=== PATIENT | female | born 1950 | race Caucasian/White ===

== ENCOUNTER 2019-06-27 08:53 | Outpatient (CLI) | payer MEDICARE ==
[2019-06-27 09:13] LABS: MEAN CORPUSCULAR HEMOGLOBIN 29.6 pg (27.0-34.8); MEAN CORPUSCULAR HGB CONC 33.1 g/dL (32.4-35.8); MEAN CORPUSCULAR VOLUME 89.7 fL (80-100); MEAN PLATELET VOLUME 8.7 fL (7.4-10.4); PLATELET COUNT 237 x10^3/uL (130-400); RED BLOOD COUNT 4.87 x10^6/uL (3.82-5.3); RED CELL DISTRIBUTION WIDTH 13.4 % (9.6-15.2)
[2019-06-27 09:23] LABS: ANION GAP 4 mmol/L (5-15); CALCIUM 9.2 mg/dL (8.5-10.1); CHLORIDE 107 mmol/L (98-107)
[2019-06-27 09:43] LABS: MD YES
[2019-06-27 09:46] LABS: BAND#(MANUAL) 0.19 x10^3/uL; BANDS%(MANUAL) 1 % (0-7); LYMPH#(MANUAL) 15.81 x10^3/uL (1-3.4); LYMPHS% (MANUAL) 85 % (22-44); SEGS% (MANUAL) 14 % (42-75)
[2019-06-27 09:47] LABS: <PLATELET ESTIMATE> ADEQUATE; <PLT MORPHOLOGY> NORMAL PLT MORPH; <RBC MORPHOLOGY> NORMAL
== END 2019-06-27 23:59 | disposition home or self-care (01) ==
LOC: LAB 08:53 → RAD 23:59
PROVIDERS: ATTEND Internal Medicine Cardiovascular Disease
DX: J43.9 Emphysema, unspecified (principal); Z98.890 Other specified postprocedural states
CPT/HCPCS: 36415; 71046; 80048; 85025

== ENCOUNTER 2019-06-30 08:24 | Inpatient (IN) | payer MEDICARE ==
[~2019-06-30] VITALS: Ht 165.1 cm; Wt 59.4 kg
[2019-06-30] MEDS ORDERED: CEFAZOLIN PMX 1GM/50ML 50 ML IVPB ONE (09:00)
[2019-06-30 09:17] VITALS: BP 151/68
[2019-06-30] MEDS ORDERED: CEFAZOLIN 1,000 MG ONE (09:38)
[2019-06-30] MEDS ORDERED: MIDAZOLAM 1 MG/ML, 5ML ONE (09:38)
[2019-06-30] MEDS ORDERED: LIDOCAINE 2%, 20ML ONE (09:38)
[2019-06-30] MEDS ORDERED: FENTANYL PF 100 MCG/2ML ONE (09:38)
[2019-06-30] MEDS ORDERED: CEFAZOLIN PMX 1GM/50ML 50 ML ONE (09:38)
[2019-06-30] MEDS ORDERED: HYDR-3237 PO (09:47)
[2019-06-30] MEDS ORDERED: LACT1CAP64 PO (09:47)
[2019-06-30] MEDS ORDERED: CHOL10003 PO (09:47)
[2019-06-30] MEDS ORDERED: SERT50TA28 PO (09:47)
[2019-06-30] MEDS ORDERED: IMMU10VI10 SQ (09:47)
[2019-06-30] MEDS ORDERED: ASPI1TAB54 PO (09:47)
[2019-06-30] MEDS ORDERED: BIOT5CAP3 PO (09:47)
[2019-06-30] MEDS ORDERED: VITA1TAB29 PO (09:47)
[2019-06-30] MEDS ORDERED: MUPI1OIN6 TP (09:47)
[2019-06-30] MEDS ORDERED: CALC600T23 PO (09:47)
[2019-06-30] MEDS ORDERED: CYCL-259 PO (09:47)
[2019-06-30] MEDS ORDERED: ZOLP5TAB6 PO (09:47)
[2019-06-30] MEDS ORDERED: CETI10TA18 PO (09:47)
[2019-06-30] MEDS ORDERED: AMOX-291 PO (09:47)
[2019-06-30] MEDS ORDERED: POTA20TA14 PO (09:47)
[2019-06-30] MEDS ORDERED: ACYC-114 PO (09:47)
[2019-06-30] MEDS ORDERED: AZEL205.2 NAS (09:47)
[2019-06-30] MEDS ORDERED: MV-M1TAB16 PO (09:47)
[2019-06-30] MEDS ORDERED: ALBU8.5H8 INH (09:47)
[2019-06-30] MEDS ORDERED: MONT10TA9 PO (09:47)
[2019-06-30] MEDS ORDERED: ESTR0.5T PO (09:47)
[2019-06-30] MEDS ORDERED: ACYC5CRE8 TP (09:47)
[2019-06-30] MEDS ORDERED: LEVO50TA5 PO (09:47)
[2019-06-30] MEDS ORDERED: SULF1TAB24 PO (09:47)
[2019-06-30] MEDS ORDERED: MULT-717 PO (09:47)
[2019-06-30] MEDS ORDERED: TRIA10.8 NAS (09:47)
[2019-06-30] MEDS ORDERED: ATOR10TA9 PO (09:47)
[2019-06-30] MEDS ORDERED: GLUC-100 PO (09:47)
[2019-06-30] MEDS ORDERED: ALEN70TA6 PO (09:47)
[2019-06-30] MEDS ORDERED: ASPI-515 PO (09:47)
[2019-06-30] MEDS ORDERED: LYSI500T25 PO (09:48)
[2019-06-30] MEDS ORDERED: ONDANSETRON 2MG/ML, 2ML IV PRN (12:00)
[2019-06-30] MEDS ORDERED: HYDROcodone/APAP 5/325 TABLET PO PRN (12:00)
[2019-06-30] MEDS ORDERED: SULFAMETH./TRIMETHOPRIM DS 800MG/160MG TABLET PO PRN (12:00)
[2019-06-30] MEDS ORDERED: ACYCLOVIR 400 MG TABLET PO PRN (12:00)
[2019-06-30] MEDS ORDERED: ALENDRONATE 70 MG TABLET PO SCH (12:00)
[2019-06-30] MEDS ORDERED: HOLD MEDICATION MC PRN (12:00)
[2019-06-30] MEDS ORDERED: ZOLPIDEM 5MG TABLET PO PRN ×2 (12:00)
[2019-06-30] MEDS: SODIUM CHLORIDE 0.9% 1,000 ML IV SCH ×2 (12:05→17:02)
[2019-06-30] MEDS: AMOXICILLIN 500 MG CAPSULE PO SCH ×2 (12:09→21:00)
[2019-06-30 13:47] VITALS: BP 117/71
[2019-06-30] MEDS: HYDROcodone/APAP 5/325 TABLET PO PRN ×2 (14:17→19:17)
[2019-06-30 17:18] VITALS: BP 167/78
[2019-06-30 19:12] VITALS: BP 109/59
[2019-06-30] MEDS: ATORVASTATIN 10 MG TABLET PO SCH (20:43)
[2019-06-30] MEDS: MONTELUKAST 10 MG TABLET PO SCH (20:43)
[2019-06-30] MEDS: CETIRIZINE 10 MG TABLET PO SCH (20:44)
[2019-06-30] MEDS: CEFAZOLIN PMX 1GM/50ML 50 ML IVPB SCH (20:44)
[2019-06-30] MEDS: SODIUM CHLORIDE FLUSH 10ML SYR IVF SCH (21:00)
[2019-07-01] MEDS: SODIUM CHLORIDE 0.9% 1,000 ML IV SCH ×5 (00:54→19:28)
[2019-07-01 00:57] VITALS: BP 109/68
[2019-07-01] MEDS: HYDROcodone/APAP 5/325 TABLET PO PRN (03:50)
[2019-07-01] MEDS: CEFAZOLIN PMX 1GM/50ML 50 ML IVPB SCH (05:00)
[2019-07-01] MEDS ORDERED: SERTRALINE 100MG TABLET ONE (08:32)
[2019-07-01] MEDS: ASPIRIN 81 MG TABLET EC PO SCH (08:35)
[2019-07-01] MEDS: POTASSIUM CHLORIDE 20 MEQ TAB.ER.PRT PO SCH (08:36)
[2019-07-01] MEDS: AMOXICILLIN 500 MG CAPSULE PO SCH ×3 (08:37→21:00)
[2019-07-01] MEDS: SERTRALINE 50MG TABLET PO SCH (08:37)
[2019-07-01] MEDS: CHOLECALCIFEROL 1,000 UNIT TABLET PO SCH (08:37)
[2019-07-01] MEDS: CYCLOBENZAPRINE 10 MG TABLET PO SCH (08:38)
[2019-07-01] MEDS: SODIUM CHLORIDE FLUSH 10ML SYR IVF SCH ×3 (08:39→21:00)
[2019-07-01 08:50] VITALS: BP 146/72
[2019-07-01] MEDS ORDERED: LEVOTHYROXINE 50 MCG TABLET PO SCH (09:00)
[2019-07-01] MEDS: ESTRADIOL 0.5 MG TABLET PO SCH (09:01)
[2019-07-01] MEDS ORDERED: CEFAZOLIN PMX 1GM/50ML 50 ML IVPB ONE (12:00)
[2019-07-01] MEDS ORDERED: LIDOCAINE 2%, 20ML ONE (14:17)
[2019-07-01] MEDS ORDERED: CEFAZOLIN PMX 1GM/50ML 50 ML ONE (14:17)
[2019-07-01] MEDS ORDERED: MIDAZOLAM 1 MG/ML, 5ML ONE (14:17)
[2019-07-01] MEDS ORDERED: FENTANYL PF 100 MCG/2ML ONE (14:17)
[2019-07-01] MEDS ORDERED: CEFAZOLIN 1,000 MG ONE (14:17)
[2019-07-01 16:13] VITALS: BP 111/72
[2019-07-01] MEDS ORDERED: HOLD MEDICATION MC PRN (17:00)
[2019-07-01] MEDS ORDERED: CEFAZOLIN PMX 1GM/50ML 50 ML IVPB SCH (17:00)
[2019-07-01 19:52] VITALS: BP 130/71
[2019-07-01] MEDS: MONTELUKAST 10 MG TABLET PO SCH (21:18)
[2019-07-01] MEDS: ATORVASTATIN 10 MG TABLET PO SCH (21:18)
[2019-07-01] MEDS: CETIRIZINE 10 MG TABLET PO SCH (21:18)
[2019-07-02] MEDS: SODIUM CHLORIDE 0.9% 1,000 ML IV SCH ×4 (00:54→11:28)
[2019-07-02] MEDS: HYDROcodone/APAP 5/325 TABLET PO PRN ×3 (01:36→12:28)
[2019-07-02] MEDS: CEFAZOLIN PMX 1GM/50ML 50 ML IVPB SCH ×2 (01:36→09:24)
[2019-07-02 01:42] VITALS: BP 121/74
[2019-07-02] MEDS ORDERED: LEVOTHYROXINE 50 MCG TABLET PO SCH (06:00)
[2019-07-02 07:39] VITALS: BP 120/78
[2019-07-02] MEDS: SODIUM CHLORIDE FLUSH 10ML SYR IVF SCH ×2 (09:00)
[2019-07-02] MEDS: SERTRALINE 50MG TABLET PO SCH (09:00)
[2019-07-02] MEDS: ASPIRIN 81 MG TABLET EC PO SCH (09:00)
[2019-07-02] MEDS: AMOXICILLIN 500 MG CAPSULE PO SCH (09:23)
[2019-07-02] MEDS: ESTRADIOL 0.5 MG TABLET PO SCH (09:23)
[2019-07-02] MEDS: CHOLECALCIFEROL 1,000 UNIT TABLET PO SCH (09:23)
[2019-07-02] MEDS: POTASSIUM CHLORIDE 20 MEQ TAB.ER.PRT PO SCH (09:24)
[2019-07-02] MEDS: CYCLOBENZAPRINE 10 MG TABLET PO SCH (09:32)
== END 2019-07-02 13:45 | disposition home or self-care (01) | DRG 243 ==
LOC: CACL 08:24 → OBSVTOIN 11:34 → 5SO 11:34 → CACL 11:54 → DCLOUNGE 07-02 13:30
PROVIDERS: ADMIT Internal Medicine Cardiovascular Disease; ATTEND Internal Medicine Cardiovascular Disease
PROC: 0JH606Z Insertion of Pacemaker, Dual Chamber into Chest Subcutaneous Tissue and Fascia, Open Approach (ICD-10-PCS; principal; 2019-06-30)
PROC: 02H63JZ Insertion of Pacemaker Lead into Right Atrium, Percutaneous Approach (ICD-10-PCS; 2019-06-30)
PROC: 02HK3JZ Insertion of Pacemaker Lead into Right Ventricle, Percutaneous Approach (ICD-10-PCS; 2019-06-30)
PROC: 02WA0MZ Revision of Cardiac Lead in Heart, Open Approach (ICD-10-PCS; 2019-07-01)
DX: T82.120A Displacement of cardiac electrode, initial encounter (principal); N39.0 Urinary tract infection, site not specified; I49.5 Sick sinus syndrome; I10 Essential (primary) hypertension; G89.29 Other chronic pain; E03.9 Hypothyroidism, unspecified; I44.30 Unspecified atrioventricular block; J45.909 Unspecified asthma, uncomplicated; Z91.048 Other nonmedicinal substance allergy status; Y83.8 Other surgical procedures as the cause of abnormal reaction of the patient, or of later complication, without mention of misadventure at the time of the procedure; Y92.89 Other specified places as the place of occurrence of the external cause
CPT/HCPCS: 33208; 33215; 71045; 93005; 99156; 99157; C1779; C1785; C1892; G0378; J0690; J2250; J3010; J7030